=== PATIENT | male | born 1955 | race Caucasian/White ===

== ENCOUNTER 2024-04-13 19:01 | Inpatient (IN) | payer MEDICARE, MEDICAID ==
[~2024-04-13] VITALS: Ht 172.7 cm; Wt 77.1 kg
[~2024-04-13 19:01] MED LIST: ALBU8.5H8 IH; AMLO5TAB66 PO; ASPI-1444 PO; ATOR20TA PO; BENZ1TAB70 PO; DOCU-412 PO; FURO20TA5 PO; GLYB-145 PO; HALO10TA20 PO; HYDR25TA2 PO; LISI5TAB21 PO; METF-445 PO; METO50 PO; MULT-60 PO; POTA8CAP20 PO; RISP3TAB35 PO
[2024-04-13 21:14] LABS: BASOPHILS % (AUTO) 0.7 % (0.0-2.0); EOSINOPHILS % (AUTO) 0.1 % (1.0-6.0); HEMATOCRIT 38.8 % (41-53); HEMOGLOBIN 12.8 g/dL (13.5-17.5); LYMPHOCYTES # (AUTO) 0.9 K/uL (1.0-4.8); LYMPHOCYTES % (AUTO) 7.9 % (22.0-44.0); MEAN CORPUSCULAR HGB CONC 33.1 G/dL (31.0-37.0); MEAN CORPUSCULAR VOLUME 91 fL (80-100); MONOCYTES # (AUTO) 0.8 K/uL (0.1-1.0); MONOCYTES % (AUTO) 6.8 % (2.0-9.0); NEUTROPHILS # (AUTO) 9.5 K/uL (1.8-7.7); NEUTROPHILS % (AUTO) 84.5 % (40.0-70.0); PLATELET COUNT (AUTO) 198 K/uL (150-450); RED BLOOD CELL COUNT(AUTO) 4.28 MIL/uL (4.50-5.90); RED CELL DISTRIBUTION WIDTH 16.3 % (11.5-14.5); WHITE BLOOD COUNT (AUTO) 11.2 K/uL (4.5-11.0)
[2024-04-13 21:22] LABS: ANION GAP 8 mmol/L (8-16); CALCIUM, TOTAL 8.3 mg/dL (8.8-10.5); CARBON DIOXIDE 29 mmol/L (22-29); CHLORIDE 102 mmol/L (98-107); CREATININE 1.11 mg/dL (0.60-1.30); GLOMERULAR FILTR. RATE CALC > 60 mL/min (>60); GLUCOSE,RANDOM 121 mg/dL (70-110); POTASSIUM 3.6 mmol/L (3.5-5.1); SODIUM SERUM 138 mmol/L (136-145); UREA NITROGEN, BLOOD 24 mg/dL (7-18)
[2024-04-13 21:25] LABS: COVID AG,FIA SOURCE NASAL SWAB
[2024-04-13 21:29] LABS: APPEARANCE,URINE CLEAR (CLEAR); BILIRUBIN,URINE NEGATIVE (NEGATIVE); COLOR,URINE YELLOW (YELLOW); GLUCOSE, URINE (UA) TRACE mg/dL (NEGATIVE); KETONES,URINE NEGATIVE (NEGATIVE); LEUKOCYTE ESTERASE ,URINE NEGATIVE (NEGATIVE); NITRATE,URINE NEGATIVE (NEGATIVE); OCCULT BLOOD,URINE TRACE (NEGATIVE); PROTEIN,URINE 100-200,SEE CONFIRM mg/dL (NEGATIVE); SPECIFIC GRAVITIY, URINE 1.023 (1.003-1.030); UROBILINOGEN,URINE <=1.0 mg/dL (<=1.0)
[2024-04-13 21:31] LABS: ALCOHOL, BLOOD (SERUM) < 3 mg/dL (0-10)
[2024-04-13 21:42] LABS: ALCOHOL, URINE DRUG SCREEN NEGATIVE (NEGATIVE); AMPHET/METH SCREEN,URINE NEGATIVE (NEGATIVE); BARBITURATE SCREEN, URINE NEGATIVE (NEGATIVE); BENZODIAZEPINES SCREEN,URINE NEGATIVE (NEGATIVE); CANNABINOID SCREEN,URINE NEGATIVE (NEGATIVE); COCAINE SCREEN,URINE NEGATIVE (NEGATIVE); METHADONE SCREEN, URINE NEGATIVE (NEGATIVE); OPIATE SCREEN,URINE NEGATIVE (NEGATIVE); PHENCYCLIDINE SCREEN,URINE NEGATIVE (NEGATIVE)
[2024-04-13 21:44] LABS: BACTERIA,URINE Few /HPF (None Seen); HYALINE CASTS, URINE 0-2 /LPF (None Seen); RBC,URINE 0-2 /HPF (0-2); SQUAMOUS EPITHELIAL CELL,UR Few /LPF (None Seen); WBC,URINE 0-2 /HPF (0-5)
[2024-04-13 21:45] LABS: SARS-COV2 (COVID) ANTIGEN,FIA Negative (Negative); SULFOSALICYLIC ACID,URINE Trace (Negative)
[2024-04-13] MEDS ORDERED: HALOPERIDOL 5 MG TABLET PO PRN (22:15)
[2024-04-14 03:10] VITALS: O2SAT 98
[2024-04-14 04:41] LABS: GLUCOMETER DEV NAME(LOC) BV2S.; GLUCOSE,POINT OF CARE 85 MG/DL (70-110)
[2024-04-14 05:24] VITALS: BP 117/70; PULSE 64; RESP 18; TEMP 99.3; O2SAT 96
[2024-04-14] MEDS ORDERED: NICOTINE 21 MG/24 HOUR PATCH TD PRN (06:45)
[2024-04-14 08:50] VITALS: BP 141/85; PULSE 70; RESP 16; TEMP 98.2; O2SAT 97
[2024-04-14] MEDS ORDERED: ONDANSETRON 4 MG TABLET PO PRN (09:45)
[2024-04-14] MEDS ORDERED: CloNIDine HCL 0.1 MG TABLET PO PRN (09:45)
[2024-04-14] MEDS ORDERED: ALBUTEROL SULFATE HFA 90 MCG/PUFF 8 GM INHALER IH PRN (09:45)
[2024-04-14] MEDS ORDERED: GuaiFENesin/D-METHORPHAN [SUGAR-FREE] 200-20MG/10 ML SYRUP UDCUP PO PRN (09:45)
[2024-04-14] MEDS ORDERED: IBUPROFEN 400 MG TABLET PO PRN (09:45)
[2024-04-14] MEDS ORDERED: NICOTINE 14 MG/24 HOUR PATCH TD PRN (09:45)
[2024-04-14] MEDS ORDERED: MAGNESIUM HYDROXIDE SUSPENSION 30 ML UDCUP PO PRN (09:45)
[2024-04-14] MEDS ORDERED: PETROLATUM,WHITE 28 GM JELLY TP PRN (09:45)
[2024-04-14] MEDS ORDERED: ACETAMINOPHEN 325 MG TABLET PO PRN (09:45)
[2024-04-14] MEDS: LOPERAMIDE HCL 2 MG CAPSULE PO PRN (09:45)
[2024-04-14] MEDS ORDERED: MAG HYDROX/ALUMINUM HYD/SIMETH ES 30 ML SUSPENSION UDCUP PO PRN (09:45)
[2024-04-14] MEDS: RisperiDONE MICROSPHERES 50 MG/2 ML SYRINGE IM ONE (10:30)
[2024-04-14] MEDS: HALOPERIDOL 10 MG TABLET PO SCH (13:01)
[2024-04-14] MEDS: BENZTROPINE MESYLATE 1 MG TABLET PO SCH (13:01)
[2024-04-14 20:19] VITALS: RESP 19
[2024-04-15 08:00] VITALS: BP 161/87; PULSE 57; RESP 18; TEMP 98.6; O2SAT 94
[2024-04-15 08:41] LABS: EOSINOPHILS % (AUTO) 10.8 % (1.0-6.0); HEMATOCRIT 38.6 % (41-53); LYMPHOCYTES % (AUTO) 30.9 % (22.0-44.0); MEAN CORPUSCULAR HEMOGLOBIN 30.2 pg (26.0-34.0); MEAN CORPUSCULAR HGB CONC 33.6 G/dL (31.0-37.0); MEAN CORPUSCULAR VOLUME 90 fL (80-100); MONOCYTES # (AUTO) 0.6 K/uL (0.1-1.0); MONOCYTES % (AUTO) 9.6 % (2.0-9.0); NEUTROPHILS % (AUTO) 47.7 % (40.0-70.0); PLATELET COUNT (AUTO) 198 K/uL (150-450); RED CELL DISTRIBUTION WIDTH 16.4 % (11.5-14.5); WHITE BLOOD COUNT (AUTO) 6.4 K/uL (4.5-11.0)
[2024-04-15 08:51] LABS: HEMOGLOBIN A1C 6.1 % (3.8-5.6)
[2024-04-15 08:56] LABS: ALANINE AMINOTRANSFERASE 27 U/L (12-78); ALKALINE PHOSPHATASE 69 U/L (46-116); ANION GAP 7 mmol/L (8-16); ASPARTATE AMINOTRANSFERASE 21 U/L (15-37); BILIRUBIN,TOTAL 0.5 mg/dL (0.1-1.0); CALCIUM, TOTAL 8.5 mg/dL (8.8-10.5); CARBON DIOXIDE 31 mmol/L (22-29); CHLORIDE 106 mmol/L (98-107); CHOL/HDL RATIO 2.1 (4.2-7.3); CHOLESTEROL 103 mg/dL (131-200); CREATININE 0.92 mg/dL (0.60-1.30); GLOMERULAR FILTR. RATE CALC > 60 mL/min (>60); GLUCOSE,RANDOM 97 mg/dL (70-110); HDL CHOLESTEROL 49 mg/dL (40-60); LDL CHOL (CALC.) 46 mg/dL (0-130); POTASSIUM 3.6 mmol/L (3.5-5.1); SODIUM SERUM 144 mmol/L (136-145); THYROID STIMULATING HORMONE 0.49 uIU/mL (0.36-3.74); TOTAL PROTEIN, SERUM 6.7 g/dL (6.4-8.2); TRIGLYCERIDES 40 mg/dL (15-150); UREA NITROGEN, BLOOD 19 mg/dL (7-18)
[2024-04-15 21:13] VITALS: RESP 18
[2024-04-16 08:29] VITALS: BP 178/103; PULSE 65; RESP 18; TEMP 98.4; O2SAT 98
[2024-04-16] MEDS ORDERED: INSULIN LISPRO 100 UNITS/ML SQ PRN (08:45)
[2024-04-16] MEDS ORDERED: GLUCAGON,HUMAN RECOMBINANT 1 MG VIAL IM PRN (08:45)
[2024-04-16] MEDS: FUROSEMIDE 20 MG TABLET PO SCH (09:08)
[2024-04-16] MEDS: ASPIRIN 81 MG CHEWABLE TABLET PO SCH (09:08)
[2024-04-16] MEDS: DOCUSATE SODIUM 250 MG CAPSULE PO SCH (09:09)
[2024-04-16] MEDS: MULTIVITAMINS WITH MINERALS, THERAPEUTIC TABLET PO SCH (09:10)
[2024-04-16] MEDS: AmLODIPine BESYLATE 10 MG TABLET PO SCH (09:11)
[2024-04-16] MEDS: LISINOPRIL 20 MG TABLET PO SCH (09:11)
[2024-04-16 10:28] VITALS: BP 161/94; PULSE 72; RESP 18; TEMP 98.4; O2SAT 95
[2024-04-16] MEDS: POTASSIUM CHLORIDE 8 MEQ ER TABLET PO SCH (13:17)
[2024-04-16] MEDS: GlyBURIDE 5 MG TABLET PO SCH (17:34)
[2024-04-16 18:50] LABS: GLUCOMETER DEV NAME(LOC) BV2S.; GLUCOSE,POINT OF CARE 112 MG/DL (70-110)
[2024-04-16 20:00] VITALS: BP 150/98; PULSE 61; RESP 17; TEMP 97.7; O2SAT 96
[2024-04-16] MEDS: ATORVASTATIN CALCIUM 20 MG TABLET PO SCH (20:27)
[2024-04-17 06:45] LABS: GLUCOMETER DEV NAME(LOC) BV2S.; GLUCOSE,POINT OF CARE 71 MG/DL (70-110)
[2024-04-17 08:31] VITALS: BP 144/76; PULSE 69; RESP 18; TEMP 98.4; O2SAT 96
[2024-04-17] MEDS: DOCUSATE SODIUM 100 MG CAPSULE PO PRN (08:43)
[2024-04-17 20:53] VITALS: BP 140/73; PULSE 67; RESP 18; TEMP 98; O2SAT 96
[2024-04-18 06:41] LABS: GLUCOMETER DEV NAME(LOC) BV2S.; GLUCOSE,POINT OF CARE 68 MG/DL (70-110)
[2024-04-18 08:54] VITALS: BP 169/92; PULSE 70; RESP 18; TEMP 97.7; O2SAT 100
[2024-04-18 17:20] LABS: GLUCOMETER DEV NAME(LOC) BV2S.; GLUCOSE,POINT OF CARE 137 MG/DL (70-110)
[2024-04-18 20:00] VITALS: BP 139/85; PULSE 76; RESP 17; TEMP 98.5; O2SAT 99
[2024-04-18 20:06] LABS: GLUCOMETER DEV NAME(LOC) BV2S.; GLUCOSE,POINT OF CARE 92 MG/DL (70-110)
[2024-04-19 08:30] VITALS: BP 140/90; PULSE 71; RESP 17; TEMP 98; O2SAT 98
[2024-04-19 08:57] VITALS: BP 140/94; PULSE 71; RESP 19; TEMP 98; O2SAT 97
[2024-04-19 09:16] LABS: GLUCOMETER DEV NAME(LOC) BV2S.; GLUCOSE,POINT OF CARE 42 MG/DL (70-110)
[2024-04-19 09:16] LABS: GLUCOMETER DEV NAME(LOC) BV2S.; GLUCOSE,POINT OF CARE 71 MG/DL (70-110)
[2024-04-19 12:21] LABS: GLUCOMETER DEV NAME(LOC) BV2S.; GLUCOSE,POINT OF CARE 95 MG/DL (70-110)
[2024-04-19 17:11] LABS: GLUCOMETER DEV NAME(LOC) BV2S.; GLUCOSE,POINT OF CARE 80 MG/DL (70-110)
[2024-04-19 20:35] VITALS: BP 152/94; PULSE 71; RESP 20; TEMP 98.1; O2SAT 97
[2024-04-20 06:21] LABS: GLUCOMETER DEV NAME(LOC) BV2S.; GLUCOSE,POINT OF CARE 90 MG/DL (70-110)
[2024-04-20 09:04] VITALS: BP 140/81; PULSE 73; RESP 17; TEMP 97.9; O2SAT 98
[2024-04-20 21:23] VITALS: BP 121/77; PULSE 73; RESP 20; TEMP 99.1; O2SAT 94
[2024-04-21 08:08] VITALS: BP 131/87; PULSE 63; RESP 17; TEMP 98.1; O2SAT 95
[2024-04-21 17:36] LABS: GLUCOMETER DEV NAME(LOC) BV2S.; GLUCOSE,POINT OF CARE 122 MG/DL (70-110)
[2024-04-21] MEDS: LORazepam 2 MG TABLET PO PRN (21:11)
[2024-04-21 21:27] VITALS: BP 129/77; PULSE 85; RESP 20; TEMP 99.9; O2SAT 95
[2024-04-21 21:31] LABS: GLUCOMETER DEV NAME(LOC) BV2S.; GLUCOSE,POINT OF CARE 110 MG/DL (70-110)
[2024-04-21] MEDS: ZOLPIDEM TARTRATE 10 MG TABLET PO PRN (22:40)
[2024-04-22 08:33] VITALS: BP 140/81; PULSE 77; RESP 16; TEMP 98.3; O2SAT 96
[2024-04-22] MEDS ORDERED: SLOWK8 PO (11:41)
[2024-04-22] MEDS ORDERED: RISPC50 IM (11:41)
[2024-04-22] MEDS ORDERED: AMLO-258 PO (11:41)
[2024-04-22] MEDS ORDERED: BENZ-247 PO (11:41)
[2024-04-22] MEDS ORDERED: DOCU-412 PO (11:41)
[2024-04-22] MEDS ORDERED: LISI-894 PO (11:41)
[2024-04-22] MEDS ORDERED: HALO10TA21 PO (11:41)
[2024-04-22] MEDS ORDERED: ATOR20TA65 PO (11:41)
[2024-04-22] MEDS ORDERED: ASPI-1450 PO (11:41)
[2024-04-22] MEDS ORDERED: FURO20TA4 PO (11:41)
[2024-04-28] MEDS ORDERED: RisperiDONE MICROSPHERES 50 MG/2 ML SYRINGE IM SCH (09:00)
== END 2024-04-22 15:00 | disposition home or self-care (01) | DRG 885 ==
LOC: EMS 19:01 → B2S 04-14 01:01
PROVIDERS: ADMIT Psychiatry & Neurology Child & Adolescent Psychiatry; ATTEND Psychiatry & Neurology Child & Adolescent Psychiatry
PROC: GZHZZZZ Group Psychotherapy (ICD-10-PCS; principal; 2024-04-14)
PROC: GZ52ZZZ Individual Psychotherapy, Cognitive (ICD-10-PCS; 2024-04-14)
PROC: GZ56ZZZ Individual Psychotherapy, Supportive (ICD-10-PCS; 2024-04-14)
DX: F20.0 Paranoid schizophrenia (principal); I11.0 Hypertensive heart disease with heart failure; Z20.822 Contact with and (suspected) exposure to COVID-19; E11.9 Type 2 diabetes mellitus without complications; I50.9 Heart failure, unspecified; Z87.820 Personal history of traumatic brain injury; F17.210 Nicotine dependence, cigarettes, uncomplicated; E78.5 Hyperlipidemia, unspecified; J44.89 Other specified chronic obstructive pulmonary disease
CPT/HCPCS: 80048; 80053; 80061; 80307; 81001; 81002; 82962; 83036; 84443; 85025; 87081; 99285; G0480; J2794